=== PATIENT | male | born 1990 | race African-American/Black ===

== ENCOUNTER 2016-11-07 08:55 | Emergency (ER) | payer MEDICAID ==
[~2016-11-07] VITALS: Ht 182.9 cm; Wt 100.0 kg
[~2016-11-07 08:55] MED LIST: IBUP800T23 PO; LORT5TAB PO; MOTR200T PO; ULTR50TA PO
[2016-11-07 08:59] VITALS: BP 154/78; PULSE 84; RESP 16; TEMP 98.2; O2SAT 98
--- NOTE | 2016-11-07 09:07 | PD ---
HPI Chief Complaint: Injury Time Seen by Provider: 09:06 Travel History International Travel<30 days: No Contact w/Intl Traveler<30days: No Traveled to known affect area: No History of Present Illness HPI Pt is a 26 year old male presenting to the ED with c/o right hand knuckle pain. Pt states he fell on it this morning while playing with his son. He reports his pain a 10/10. He has no other complaints at this time. [facility] Past Medical History Medical History: Denies Significant Hx Social History Alcohol Use: No Tobacco Use: No Substance Use: No Allergies-Medications (Allergen,Severity, Reaction): Coded Allergies: No Known Allergies (Unverified , 11/07/16) Reported Meds & Prescriptions Reported Meds & Active Scripts Active No Active Prescriptions or Reported Medications Review of Systems Except as stated in HPI: all other systems reviewed are Neg Musculoskeletal: Positive: Arthralgias, Pain Physical Exam Narrative GENERAL: Well-nourished, well-developed patient. SKIN: Focused skin assessment warm/dry. HEAD: Normocephalic. EYES: No scleral icterus. No injection or drainage. NECK: Supple, trachea midline. No JVD or lymphadenopathy. CARDIOVASCULAR: Regular rate and rhythm without murmurs, gallops, or rubs. RESPIRATORY: Breath sounds equal bilaterally. No accessory muscle use. GASTROINTESTINAL: Abdomen soft, non-tender, nondistended. MUSCULOSKELETAL: No cyanosis, enlarged right third MCP joint. No edema, no erythema noted, full range of motion in right hand and fingers. Patient is neurovascularly intact. BACK: Nontender without obvious deformity. No CVA tenderness. Data Data Last Documented VS Vital Signs Date Time Temp Pulse Resp B/P Pulse Ox O2 Delivery O2 Flow Rate FiO2 11/07/16 08:59 98.2 84 16 154/78 98 Orders Hand, Complete ([id number]) (11/07/16 ) [facility] Medical Decision Making Medical Screen Exam Complete: Yes Emergency Medical Condition: Yes Interpretation(s) Vital Signs Date Time Temp Pulse Resp B/P Pulse Ox O2 Delivery O2 Flow Rate FiO2 11/07/16 08:59 98.2 84 16 154/78 98 Differential Diagnosis Sprain versus strain versus fracture versus other Narrative Course Patient is a 26-year-old male presenting to emergency evaluation of right knuckle pain after falling onto his hand this morning at approximately 8:30 AM. Patient is neurovascularly intact, imaging ordered and pending. Imaging of the right hand was negative for acute fracture. There is a mild deformity at the carpal navicular bone. Patient does not have any wrist pain. He has full range of motion in his wrist. No tenderness on palpation. Patient is encouraged to rest, ice, elevate extremity. He is encouraged to continue range of motion exercises. Patient was advised he can take [id number] acetaminophen or ibuprofen as needed and as directed for pain. Patient verbalized understanding of these instructions. Patient is stable for discharge. Diagnosis Primary Impression: Strain of MCP joint Qualified Code: S66.811A - Strain of MCP joint, right, initial encounter Referrals: Primary Care Physician 1 week Patient Instructions: General Instructions, Swollen Joint (ED) Additional Instructions: Follow-up with your primary doctor Alternate heat and ice to the affected area, continue range of motion exercises , avoid exacerbating activities You may take [id number] acetaminophen or ibuprofen as needed and as directed for pain Return to emergency department for any new or worsening symptoms Med/Other Pt SpecificInfo: No Change to Meds Scripts No Active Prescriptions or Reported Meds Disposition: 01 DISCHARGE HOME Condition: Stable Jennifer James Nov 07, 2016 09:07
--- NOTE | 2016-11-07 09:35 | RADRPT ---
EXAM DATE/TIME: 11/07/2016 09:21 [place] COMPARISON: No previous studies available for comparison. INDICATIONS : Injury to right hand. 3 digit metacarpophalangeal joint. Fell on hand playing with son. MEDICAL HISTORY : None. SURGICAL HISTORY : None. ENCOUNTER: Initial ACUITY: 1 day PAIN SCORE: 10/10 LOCATION: Right hand FINDINGS: There is mild deformity of the carpal navicular. Fracture at the third metacarpophalangeal joint, th e site of pain is not visualized. CONCLUSION: Mild deformity carpal navicular. Fracture is not appreciated. Tomás Vila MD FACR on November 07, 2016 at 9:31 Board Certified Radiologist. This report was verified electronically.
== END 2016-11-07 09:52 | disposition home or self-care (01) ==
LOC: NETRI 08:55
DX: S66.811A Strain of other specified muscles, fascia and tendons at wrist and hand level, right hand, initial encounter (principal); W18.30XA Fall on same level, unspecified, initial encounter; Y93.89 Activity, other specified; Y92.9 Unspecified place or not applicable; Y99.9 Unspecified external cause status
CPT/HCPCS: 73130; 99283

== ENCOUNTER 2017-05-14 14:54 | Emergency (ER) | payer SELFPAY ==
[~2017-05-14] VITALS: Ht 182.9 cm; Wt 100.0 kg
[2017-05-14 14:55] VITALS: BP 174/84; PULSE 59; RESP 17; TEMP 98.4; O2SAT 99
--- NOTE | 2017-05-14 16:10 | PD ---
HPI Chief Complaint: Complaint Time Seen by Provider: 16:08 Travel History International Travel<30 days: No Contact w/Intl Traveler<30days: No Traveled to known affect area: No History of Present Illness HPI 26-year-old male presents to emergency primary for evaluation of an old discharge 1 week. Patient states this is accompanied by burning with urination. Denies abdominal pain. No fever chills. Does have unprotected intercourse with women. Has no other symptoms to report. PFSH Past Surgical History Appendectomy: Yes Social History Alcohol Use: No Tobacco Use: No Substance Use: No Allergies-Medications (Allergen,Severity, Reaction): Coded Allergies: No Known Allergies (Unverified , 11/07/16) Reported Meds & Prescriptions Reported Meds & Active Scripts Active No Active Prescriptions or Reported Medications Review of Systems Except as stated in HPI: all other systems reviewed are Neg Physical Exam Narrative GENERAL: Well-nourished male patient, in no acute distress SKIN: Focused skin assessment warm/dry. HEAD: Atraumatic. Normocephalic. EYES: Pupils equal and round. No scleral icterus. No injection or drainage. ENT: No nasal bleeding or discharge. Mucous membranes pink and moist. NECK: Trachea midline. No JVD. CARDIOVASCULAR: Regular rate and rhythm. No murmur appreciated. RESPIRATORY: No accessory muscle use. Clear to auscultation. Breath sounds equal bilaterally. GASTROINTESTINAL: Abdomen soft, non-tender, nondistended. Hepatic and splenic margins not palpable. GENITOURINARY: Circumcised. Testes descended bilaterally without evidence of rotation. No lesions or erythema. Yellow white urethral discharge. MUSCULOSKELETAL: No obvious deformities. No clubbing. No cyanosis. No edema. Data Data Last Documented VS Vital Signs Date Time Temp Pulse Resp B/P (MAP) Pulse Ox O2 Delivery O2 Flow Rate FiO2 05/14/17 16:56 05/14/17 14:55 98.4 59 17 99 Orders Orders Urinalysis - C+S If Indicated (05/14/17 16:08) Gc And Chlamydia Pcr (05/14/17 16:08) Ceftriaxone Inj (Rocephin Inj) (05/14/17 16:15) Lidocaine 1% Inj (50 Ml) (Xylocaine 1% I (05/14/17 16:15) Azithromycin (Zithromax) (10/7/17 16:15) Labs Laboratory Tests Test 05/14/17 16:23 Urine Color YELLOW Urine Turbidity CLEAR Urine pH 6.5 Urine Specific [place] 1.017 Urine Protein NEG mg/dL Urine Glucose (UA) NEG mg/dL Urine Ketones NEG mg/dL Urine Occult Blood NEG Urine Nitrite NEG Urine Bilirubin NEG Urine Urobilinogen 2.0 MG/DL Urine Leukocyte Esterase NEG Urine RBC LESS THAN 1 /hpf Urine WBC LESS THAN 1 /hpf Urine Mucus FEW /lpf Microscopic Urinalysis Comment CULT NOT INDICATED MDM Medical Decision Making Medical Screen Exam Complete: Yes Emergency Medical Condition: Yes Medical Record Reviewed: Yes Differential Diagnosis Urethritis versus cystitis versus STD Narrative Course 26-year-old male presents to the emergency department for evaluation of penile discharge and dysuria 1 week. Urine and GC PCR sent. Patient will be treated empirically with Rocephin and azithromycin. He is counseled on safe sex practices. He is encouraged to follow[facility] or primary care provider and to return immediately with any acute worsening of symptoms. Diagnosis Primary Impression: Penile discharge Additional Impression: Dysuria [facility] Patient Instructions: General Instructions, Safe Sex (ED) Additional Instructions: It is important to utilize condom prophylaxis Follow up with a primary care provider [facility] Return to ED with acute worsening of symptoms Med/Other Pt SpecificInfo: No Change to Meds Scripts No Active Prescriptions or Reported Meds Disposition: 01 DISCHARGE HOME Condition: Stable Catalina Claros May 14, 2017 16:10
[2017-05-14] MEDS ORDERED: cefTRIAXone 250 MG VIAL IM ONE (16:15)
[2017-05-14] MEDS ORDERED: LIDOCAINE HCL 1% 50 ML VIAL XX ONE (16:15)
[2017-05-14] MEDS ORDERED: AZITHROMYCIN 250 MG TAB PO ONE (16:15)
[2017-05-14 16:37] LABS: BLOOD, URINE NEG (NEG); COMMENT (UR) CULT NOT INDICATED; CULTURE IF INDICATED CULT NOT INDICATED; GLUCOSE,URINE NEG (NEG); KETONE, URINE NEG (NEG); MUCUS URINE FEW /lpf (OCC); NITRITE,URINE NEG (NEG); PH, URINE 6.5 (5.0-8.5); URINE COLOR YELLOW (YELLW/STRAW)
[2017-05-14 20:50] LABS: CHLAMYDIA PCR NOT DETECTED (NOT DETECT); NEISSERIA PCR NOT DETECTED (NOT DETECT)
== END 2017-05-14 17:11 | disposition home or self-care (01) ==
LOC: NEPD 14:54
DX: R30.0 Dysuria (principal)
CPT/HCPCS: 81001; 87491; 87591; 96372; 99284; J0696